=== PATIENT | male | born 1955 | race Caucasian/White ===

== ENCOUNTER 2019-06-14 05:40 | Day surgery (SDC) | payer BC ==
[2019-06-10 09:31] LABS: Urine WBC None Seen /hpf (0 - 3)
[2019-06-10 09:33] LABS: Basophils # (auto) 0 uL; Basophils % (auto) 0.3 % (0.0-2.0); Eosinophils # (auto) 0.1 uL; Eosinophils % (auto) 2.2 % (0.0-7.0); Hematocrit 44.1 % (41.0-53.0); Hemoglobin 15.1 g/dL (13.5-17.5); Lymphocytes # (auto) 0.6 uL; Lymphocytes % (auto) 20.8 % (10.0-50.0); Mean Corpuscular Hemoglobin 30.8 pg (28.0-32.0); Mean Corpuscular Hgb Conc. 34.3 g/dL (32.0-36.0); Mean Corpuscular Volume 89.9 fL (80.0-100.0); Monocytes # (auto) 0.4 uL; Monocytes % (auto) 12.2 % (0.0-12.0); Neutrophils # (auto) 1.9 uL; Neutrophils % (auto) 64.5 % (37.0-80.0); Platelet Count (auto) 150 10^3/uL (140-450); Red Blood Cells 4.91 10^6/uL (4.5-5.90); Red Cell Distribution Width 13.9 % (11.8-14.3)
[2019-06-10 09:42] LABS: Urine Amorphous Crystal MANY /hpf (None Seen); Urine Bacteria NONE SEEN /hpf (None Seen); Urine Blood Negative /uL (Negative); Urine Specific Gravity 1.011 (1.001-1.035)
[2019-06-10 09:47] LABS: INR 1.01 (0.9-1.15); Partial Thromboplastin Time 26.8 sec (23.64-32.05)
[2019-06-10 09:50] LABS: Albumin 4.4 g/dL (3.4-5.0); Calcium 9.1 mg/dL (8.5-10.1); Potassium 4.2 mmol/L (3.5-5.1)
[2019-06-10 09:53] LABS: BUN/Creatinine Ratio 15.2; Bilirubin, Total 0.7 mg/dL (0.2-1.0); Total Protein 7.4 g/dL (6.4-8.2)
[~2019-06-14] VITALS: Ht 182.9 cm; Wt 68.5 kg
[2019-06-14] MEDS ORDERED: HEPARIN SODIUM (PORCINE) 5000 UNITS/ML 1ML VIAL ONE (06:39)
[2019-06-14] MEDS ORDERED: LIDOCAINE 1% HCL (LOCAL ANESTH.) INJ 20ML MDV ONE ×2 (07:00→07:09)
[2019-06-14] MEDS ORDERED: SUCCINYLCHOLINE CHLORIDE 20 MG/ML 10ML VIAL IV ONE (07:00)
[2019-06-14] MEDS ORDERED: MEPERIDINE HCL (25 MG/ML) 1ML VIAL ONE (07:03)
[2019-06-14] MEDS ORDERED: ROCURONIUM 10MG/ML 10ML VIAL IV ONE (07:03)
[2019-06-14] MEDS ORDERED: PROPOFOL 10 MG/ML 20 ML IV ONE (07:03)
[2019-06-14] MEDS ORDERED: NEOSTIGMINE 1 MG/ML INJ (10mg/10ML VIAL) ONE (07:03)
[2019-06-14] MEDS ORDERED: SODIUM CHLORIDE LOCK 10 ML ONE (07:03)
[2019-06-14] MEDS ORDERED: ONDANSETRON HCL 4 MG/2 ML VIAL ONE (07:03)
[2019-06-14] MEDS ORDERED: MIDAZOLAM HCL 1MG/1ML-2 ML VIAL ONE (07:03)
[2019-06-14] MEDS ORDERED: fentaNYL CITRATE 100 MCG/2 ML VL ONE (07:03)
[2019-06-14] MEDS ORDERED: GLYCOPYRROLATE 0.2 MG/ML 1ML VIAL ONE (07:03)
[2019-06-14] MEDS ORDERED: BUPIVACAINE HCL 50 ML ONE (07:09)
[2019-06-14] MEDS ORDERED: ceFAZolin 1GM/50ML 50 ML IV ONE (07:09)
[2019-06-14] MEDS ORDERED: fentaNYL CITRATE 100 MCG/2 ML VL IV PRN (07:30)
[2019-06-14] MEDS ORDERED: METOCLOPRAMIDE HCL 5MG/ml INJ 2ml VIAL IV PRN (07:30)
[2019-06-14] MEDS ORDERED: HYDROmorphone HCL 2 MG/ML VL IV PRN (07:30)
[2019-06-14] MEDS ORDERED: KETOROLAC TROMETH 30 MG/ML 1ML VIAL IV ONE (07:30)
[2019-06-14] MEDS ORDERED: MORPHINE SULFATE 4 MG/ML SYR/VIAL IV PRN (07:30)
[2019-06-14] MEDS ORDERED: LIDOCAINE HCL 2% TOP JELLY 5ML TOP ONE (07:31)
[2019-06-14] MEDS ORDERED: LIDOCAINE 2% (LOCAL ANESTH.) PF 5ml SDV ONE (07:31)
[2019-06-14 10:16] VITALS: BP 138/79
== END 2019-06-14 10:25 | disposition home or self-care (01) ==
LOC: SUR 05:40
DX: K42.0 Umbilical hernia with obstruction, without gangrene (principal); K40.30 Unilateral inguinal hernia, with obstruction, without gangrene, not specified as recurrent; I10 Essential (primary) hypertension; Z79.899 Other long term (current) drug therapy; N40.0 Benign prostatic hyperplasia without lower urinary tract symptoms
CPT/HCPCS: 36415; 49507; 49587; 80053; 81001; 85025; 85610; 85730; 93005; C1781; J0330; J0690; J1644; J2001; J2175; J2250; J2405; J2704; J2765; J3010; J3490

== ENCOUNTER 2022-02-26 14:13 | Emergency (ER) | payer BC, OTHER ==
[~2022-02-26] VITALS: Ht 180.3 cm; Wt 70.5 kg
[2022-02-26] MEDS ORDERED: SODIUM CHLORIDE 0.9% 1,000 ML IV ONE ×2 (17:45)
[2022-02-26 18:50] LABS: Albumin 4.7 g/dL (3.4-5.0); Calcium 9.3 mg/dL (8.5-10.1); Magnesium 2.5 mg/dL (1.6-2.6); Potassium 3.8 mmol/L (3.5-5.1)
[2022-02-26 18:53] LABS: BUN/Creatinine Ratio 15.6; Bilirubin, Total 0.7 mg/dL (0.2-1.0); Total Protein 7.9 g/dL (6.4-8.2)
[2022-02-26 22:57] LABS: Basophils # (auto) 0 10 ^3/uL (0-0.2); Basophils % (auto) 0.4 % (0.0-2.0); Eosinophils # (auto) 0.1 10 ^3/uL (0-0.8); Eosinophils % (auto) 1.2 % (0.0-7.0); Hematocrit 41.5 % (41.0-53.0); Hemoglobin 14.4 g/dL (13.5-17.5); Lymphocytes # (auto) 0.4 10 ^3/uL (0.4-5.4); Lymphocytes % (auto) 6.8 % (10.0-50.0); Mean Corpuscular Hemoglobin 30.8 pg (28.0-32.0); Mean Corpuscular Hgb Conc. 34.8 g/dL (32.0-36.0); Mean Corpuscular Volume 88.6 fL (80.0-100.0); Monocytes # (auto) 0.6 10 ^3/uL (0-1.3); Monocytes % (auto) 8.9 % (0.0-12.0); Neutrophils # (auto) 5.1 10 ^3/uL (1.6-8.6); Neutrophils % (auto) 82.7 % (37.0-80.0); Nucleated Red Blood Cells % 0.1 %; Red Blood Cells 4.69 10^6/uL (4.5-5.90); Red Cell Distribution Width 13.8 % (11.8-14.3); White Blood Cell 6.2 10^3/uL (4.4-10.8)
[2022-02-27 00:24] VITALS: BP 145/76
== END 2022-02-27 00:31 | disposition home or self-care (01) ==
LOC: ER 14:13
DX: R42 Dizziness and giddiness (principal)
CPT/HCPCS: 36415; 70450; 71046; 80053; 83735; 84443; 84484; 85025; 93005; 96360; 96361; 99285; J7030